=== PATIENT | female | born 1995 | race Caucasian/White ===

== ENCOUNTER 2016-10-26 18:50 | Emergency (ER) | payer OTHER ==
[2016-10-26 19:37] LABS: Urine Bacteria Absent (Absent); Urine Bilirubin Negative (Negative); Urine Glucose Negative (Negative); Urine Nitrite Negative (Negative)
--- NOTE | 2016-10-26 19:53 | ED ---
Artis Penny Anna, scribed for Pavel Farris MD on 10/26/16 at 1923 . Abdominal Pain/Female - HPI Summary HPI Summary: Patient is a 21 y/o female coming to [facility] presenting with constant cramping, lower abd pain that began one day ago. She describes the pain as severity 5/10 and radiating to her back. She has additionally had vaginal discharge for one week. She denies bleeding or dysuria. She is currently 25 weeks and being seen by [facility], where she was last seen four weeks ago. NKDA. - History of Current Complaint Chief Complaint: ED Stated Complaint: 24 WEEKS PREG , LOWER BACK PAIN, AND CRAMPING Time Seen by Provider: 10/26/16 19:14 Hx Obtained From: Patient, Family/[employer] - Accompanied by significant other ?: Yes Pain Intensity: 5 Allergies/Adverse Reactions: Allergies Allergy/AdvReac Type Severity Reaction Status Date / Time No Known Allergies Allergy Verified 10/26/16 19:26 PMH/Surg Hx/FS Hx/Imm Hx Previously Healthy: Yes Cardiovascular History: Denies: Hx Coronary Artery Disease, Hx Hypertension Infectious Disease History: No Infectious Disease History: Denies: Traveled Outside the [place] in Last 30 Days - Family History Known Family History: Negative: Cardiac Disease, Hypertension, Diabetes - Social History Lives: With Family Alcohol Use: None Hx Substance Use: No Substance Use Type: Reports: None Hx Tobacco Use: No Smoking Status (MU): Never Smoked Tobacco Review of Systems Positive: Abdominal Pain Positive: discharge Positive: Myalgia - back pain All Other Systems Reviewed And Are Negative: Yes Physical Exam Triage Information Reviewed: Yes Vital Signs On Initial Exam: Initial Vitals Temp Pulse Resp BP Pulse Ox 98.6 F 99 16 120/62 100 10/26/16 19:01 10/26/16 19:01 10/26/16 19:01 10/26/16 19:01 10/26/16 19:01 Vital Signs Reviewed: Yes Appearance: Positive: Well-Appearing, No Pain Distress Skin: Positive: Warm Head/Face: Positive: Normal Head/Face Inspection Eyes: Positive: XAVIER ENT: Positive: Hearing grossly normal Neck: Positive: Supple Respiratory/Lung Sounds: Positive: Breath Sounds Present Cardiovascular: Positive: RRR Abdomen Description: Positive: Other: - gravid Bowel Sounds: Positive: Present Musculoskeletal: Positive: Strength/ROM Intact Neurological: Positive: Alert, Oriented to Person Place, Time, Normal Gait Psychiatric: Positive: Normal Diagnostics - Vital Signs Vital Signs Temp Pulse Resp BP Pulse Ox 10/26/16 19:01 98.6 F 99 16 120/62 100 - Laboratory Lab Results: Lab Results 10/26/16 Range/Units 19:20 Urine Color Yellow Urine Appearance Clear Urine pH 6.0 (5-9) Ur Specific [place] 1.008 L (1.010-1.030) Urine Protein Negative (Negative) Urine Ketones Negative (Negative) Urine Blood Negative (Negative) Urine Nitrate Negative (Negative) Urine Bilirubin Negative (Negative) Urine Urobilinogen Negative (Negative) Ur Leukocyte Esterase Trace H (Negative) Urine WBC (Auto) Trace(0-5/hpf) (Absent) Urine RBC (Auto) Trace(0-2/hpf) (Absent) Ur Squamous Epith Cells Present H (Absent) Urine Bacteria Absent (Absent) Urine Glucose Negative (Negative) Lab Statement: Any lab studies that have been ordered have been reviewed, and results considered in the medical decision making process. - Ultrasound No standard instances Ultrasound Interpretation: Positive (See Comments) Ultrasound Interpretation Completed By: Radiologist - IMPRESSION: THERE IS A SINGLE INTRAUTERINE IN THE CEPHALIC PRESENTATION WITH A COMPOSITE ESTIMATED GESTATIONAL AGE OF 25 WEEKS 0 DAYS. Re-Evaluation - Re-Evaluation First Eval Re-Evaluation Time: 23:19 - d/w dr shane Change: Improved Comment: Discussed results and plan of care with patient. Patient agrees with plan. Abdominal Pain Fem Course/Dx - Course Course Of Treatment: Patient is a 21 y/o female coming to [facility] presenting with constant cramping, lower abd pain that began one day ago. She describes the pain as severity 5/10 and radiating to her back. She has additionally had vaginal discharge for one week. She denies bleeding or dysuria. She is currently 25 weeks and being seen by [facility], where she was last seen four weeks ago. NKDA. Patient was placed on an external monitor in the ED. Patients UA revealed trace squamous epithelial cells and trace leukocyte esterase. US reveals a single intrauterine in the cephalic presentation with a composite estimated gestational age of 25 weeks and 0 days. Patient will be discharged home with follow-up from her OBGYN. - Diagnoses Provider Diagnoses: Abdominal pain - Provider Notifications Discussed Care Of Patient With: Dr. Shane (OBGYN) at 2316. Patient should follow up with her OBGYN on an outpatient basis. Discharge - Discharge Plan Condition: Stable Disposition: HOME Patient Education Materials: Abdominal Pain in (ED) Referrals: Women's Health Team, [facility] [Other] [facility] [place] [facility]IAN REFERRAL [Outside] Additional Instructions: Follow up with OBGYN within 48 hours. Return to the emergency department for changing or worsening symptoms. The documentation as recorded by the Artis ramirez Anna accurately reflects the service I personally performed and the decisions made by me, Pavel Farris MD.
--- NOTE | 2016-10-26 22:31 | RAD ---
Indication: assess cervical length. COMPARISON: There are no prior studies available for comparison. TECHNIQUE: Multiple real-time transabdominal images of the pelvis were obtained. FINDINGS: This exam demonstrates a single intrauterine in the cephalic presentation. cardiac activity and limb motion are noted. The heart rate was 156 beats per minute. The placenta was located anterior. There is no placenta previa. The amniotic fluid volume appeared to be within normal limits. The cervix measured 4.9 cm in length and appeared closed. Biparietal diameter (cm): 6.23 25 weeks 2 days Head circumference (cm): 23.24 25 weeks 7 days Abdominal circumference (cm): 20.13 24 weeks 6 days Femur length (cm): 4.35 24 weeks 2 days The composite estimated gestational age was 25 weeks 0 days. The estimated date of delivery is February 08, 2017. The estimated weight at this time is 722 grams plus or minus 106 grams. The anatomy was not examined on this limited emergent study. IMPRESSION: THERE IS A SINGLE INTRAUTERINE IN THE CEPHALIC PRESENTATION WITH A COMPOSITE ESTIMATED GESTATIONAL AGE OF 25 WEEKS 0 DAYS.
[2016-10-26 23:30] VITALS: BP 106/49
== END 2016-10-26 23:28 | disposition home or self-care (01) ==
LOC: ED 18:50
DX: O26.892 Other specified pregnancy related conditions, second trimester (principal); Z3A.24 24 weeks gestation of pregnancy; R10.9 Unspecified abdominal pain; M54.9 Dorsalgia, unspecified
CPT/HCPCS: 76815; 81003; 81015; 87086; 99282